=== PATIENT | female | born 1970 | race African-American/Black ===

== ENCOUNTER → 2017-12-02 | Emergency (ER) | payer OTHER ==
[~2017-12-02] VITALS: Ht 154.9 cm; Wt 96.2 kg
[~2017-12-02] MED LIST: LOXAPINE5 MG PO; SEROQUEL 50 MG50 MG PO; XANAX 0.5 MG0.5 MG PO; ZYPREXA2.5 MG PO
[2017-12-02 11:06] VITALS: BP 140/81
[2017-12-02 11:33] LABS: URINE BILIRUBIN NEGATIVE (Negative); URINE BLOOD NEGATIVE (Negative); URINE CLARITY SL CLOUDY; URINE COLOR YELLOW; URINE GLUCOSE-RANDOM* NEGATIVE (Negative); URINE KETONES NEGATIVE (Negative); URINE PROTEIN (DIPSTICK) NEGATIVE (Negative); URINE UROBILINOGEN 0.2 E.U./dl (0.2-1.0)
[2017-12-02 11:34] LABS: URINE LEUKOCYTES-REFLEX TRACE (Negative); URINE NITRITE-REFLEX POSITIVE (Negative)
[2017-12-02 11:41] LABS: AMP/METHAMP Negative (Negative); BARBITURATES Negative (Negative); BENZODIAZEPINES Negative (Negative); COCAINE Negative (Negative); METHADONE Negative (Negative); OPIATES Negative (Negative); PCP POSITIVE (Negative)
[2017-12-02 11:43] LABS: BACTERIA-REFLEX >30 Many /HPF (None Seen); CASTS None Seen /LPF (None Seen); CRYSTALS None Seen /LPF (None Seen); SQUAMOUS >10 Many /LPF (0-3); URINE RBC None Seen /HPF (0-2); URINE WBC-REFLEX 6-15 Few /HPF (0-5)
[2017-12-02 12:21] LABS: ABSOLUTE NEUTROPHILS 5.7 thou/uL (1.4-8.2); BASOPHILS 0.7 % (0.0-2.0); EOSINOPHILS 0.1 % (0.0-3.0); HEMATOCRIT 40.1 % (37.0-47.0); HEMOGLOBIN 13.8 gm/dL (12.0-15.0); LYMPHOCYTES 29.8 % (24.0-44.0); MCH 30.7 pg (26.0-34.0); MCHC 34.5 g/dL (28.0-37.0); MONOCYTES 7.1 % (1.0-8.0); PLATELET COUNT 243 thou/uL (150-400); POLYS 62.3 % (36.0-66.0); RBC 4.51 mil/uL (4.20-5.00); RDW 14.9 % (10.5-14.5); WBC 9.2 thou/uL (4.0-11.0)
[2017-12-02 12:23] LABS: ANION GAP 7 mmol/L (7-16); BUN 9 mg/dL (7-18); CALCIUM 9.3 mg/dL (8.5-10.1); CHLORIDE 103 mmol/L (98-107); CO2 29 mmol/L (21-32); GLUCOSE 78 mg/dL (74-106); POTASSIUM 3.1 mmol/L (3.5-5.1); SODIUM 139 mmol/L (136-145)
[2017-12-02 12:29] LABS: ALBUMIN 3.8 g/dL (3.4-5.0); SALICYLATE 4.2 mg/dL (2.8-20.0); SGOT 22 U/L (15-37); SGPT 32 U/L (30-65); TOTAL BILIRUBIN 0.3 mg/dL (<0.1-1.0); TOTAL PROTEIN 8.1 g/dL (6.4-8.2)
== END ==
LOC: ER 10:58
PROVIDERS: Emergency Medicine
DX: F32.9 Major depressive disorder, single episode, unspecified (principal); F41.9 Anxiety disorder, unspecified; Z59.0 Homelessness; F17.210 Nicotine dependence, cigarettes, uncomplicated; I10 Essential (primary) hypertension

== ENCOUNTER 2020-11-29 01:12 | Emergency (ER) | payer OTHER ==
[~2020-11-29] VITALS: Ht 154.9 cm; Wt 81.7 kg
--- NOTE | ~2020-11-29 | EMS ---
[address] [address] EMS Patient Care Report Name: DOMINICK GAMBOA Room #: DEP CAN Sam#: [id number] Admission: 11/29/20 Attend Phys: Discharge: 11/29/20 Date of : 74 Report #: [id number] THIS REPORT FOR: //name// Report Transmitted: 11/30/2020 14:50 EMS Care Summary [place], [place]/[facility] Incident [id number] @ 11/29/2020 00:21 Incident Location [address] [place] [id number] Patient DOMINICK GAMBOA Female, 50 Years 1970 Patient Address [address] [place] [address] [address] [place] [address] Patient History Chronic Obstructive Pulmonary Disease (COPD),Hypertension (HTN),Bipolar II Disorder,Depression,Anxiety,Colostomy,Schizoaffective Disorder,Insomnia, Patient Allergies No known allergies, Patient Medications Lisinopril, Lorazepam, Trazodone, Seroquel, Albuterol, Chief Complaint SI Disposition Transported No Lights/[place] Dispatch Reason Psychiatric Problem/Abnormal Behavior/Suicide Attempt Transported To [facility] Narrative UPON ARRIVAL WE FOUND OUR 50 YEAR OLD FEMALE PATIENT, WITH AN EXTENSIVE MENTAL [facility] [address] [place] [address] EMS Patient Care Report Name: DOMINICK GAMBOA Room #: DEP CAN Sam#: [id number] Admission: 11/29/20 Attend Phys: Discharge: 11/29/20 Date of : 74 Report #: [id number] HEALTH HX, SITTING ON THE STAIRS IN FRONT OF AN APT BUILDING COMPLAINING OF BEING DEPRESSED AND SI WITH A PLAN TO OVERDOSE ON HER MEDS. THE PATIENT REQUESTS TRANSPORT TO [facility] FOR EVALUATION. Initial Vitals @00:48P: 105,R: 18,BP: 174/100,Pain: 0/10,GCS: 15,CO: 13,SpO2: 97,Revised Trauma: 12, @01:08P: 108,R: 18,BP: 170/100,Pain: 0/10,GCS: 15,SpO2: 98,Revised Trauma: 12, Assessments @00:45MENTAL:Place Oriented,Person Oriented,Time Oriented,Event Oriented,Other,SKIN:HEENT:Eyes: Right Pupil: 4-mm,Eyes: Left Pupil: 4-mm,Head/Face: No Abnormalities,Neck/Airway: No Abnormalities,LUNG SOUNDS:General: No Abnormalities,ABDOMEN:General: No Abnormalities,PELVIS//GI:No Abnormalities,EXTREMITIES:Left Arm: No Abnormalities,Right Arm: No Abnormalities,Left Leg: No Abnormalities,Right Leg: No Abnormalities,PULSE:Radial: 2+ Normal,NEURO:No Abnormalities, Impression Suicidal Ideation Procedures @00:45ALS AssessmentResponse: UnchangedSucceeded Timeline 00:19,Call Received 00:19,Dispatch Notified 00:21,Dispatched 00:25,En Route 00:44,On Scene 00:45,At Patient 00:45,ALS Assessment,Response: UnchangedSucceeded, 00:48,BP: 174/100 M,PULSE: 105,RR: 18 R,SPO2: 97 Ox,ETCO2: ,BG: ,PAIN: 0,GCS: 15, 00:49,Depart Scene 01:07,At Destination 01:08,BP: 170/100 M,PULSE: 108,RR: 18 R,SPO2: 98 Ox,ETCO2: ,BG: ,PAIN: 0,GCS: 15, 01:23,Call Closed Disclaimer v1.1 Copyright 2020 [employer] This EMS Care Summary contains data elements from the applicable legal record (which may be displayed differently). It is designed to provide pertinent information for the following purposes: continuity of care, clinical quality, and state data reporting. The complete legal record is available to ED staff [address] [address] EMS Patient Care Report Name: DOMINICK GAMBOA Room #: DEP CAN Sam#: [id number] Admission: 11/29/20 Attend Phys: Discharge: 11/29/20 Date of : 74 Report #: [id number] and administrators of the receiving hospital in 8aweek's Patient Tracker. All data is provided "as is."
[2020-11-29 02:00] LABS: ABSOLUTE NEUTROPHILS 5.2 thou/uL (1.4-8.2); BASOPHILS 1.3 % (0.0-2.0); EOSINOPHILS 1.1 % (0.0-3.0); HEMATOCRIT 34.4 % (37.0-47.0); HEMOGLOBIN 11.4 gm/dL (12.0-15.0); LYMPHOCYTES 36.2 % (24.0-44.0); MCH 28.8 pg (26.0-34.0); MCHC 33.3 g/dL (28.0-37.0); MCV 86.6 fL (80.0-100.0); MONOCYTES 8.2 % (1.0-8.0); PLATELET COUNT 266 thou/uL (150-400); POLYS 53.2 % (36.0-66.0); RBC 3.97 mil/uL (4.20-5.00); RDW 16.6 % (10.5-14.5); WBC 9.8 thou/uL (4.0-11.0)
[2020-11-29 02:10] LABS: CREATININE 0.8 mg/dL (0.6-1.0); POTASSIUM 3.6 mmol/L (3.5-5.1)
[2020-11-29 02:17] LABS: ALBUMIN 3.7 g/dL (3.4-5.0); SALICYLATE 4.2 mg/dL (2.8-20.0); TOTAL BILIRUBIN 0.3 mg/dL (0.2-1.0); TOTAL PROTEIN 7.6 g/dL (6.4-8.2)
[2020-11-29 03:47] LABS: AMP/METHAMP Negative (Negative); BARBITURATES Negative (Negative); BENZODIAZEPINES Negative (Negative); COCAINE Negative (Negative); METHADONE Negative (Negative); OPIATES Negative (Negative); PCP POSITIVE (Negative)
[2020-11-29 06:27] VITALS: BP 141/97
== END 2020-11-29 06:30 | disposition home or self-care (01) ==
LOC: ER 01:12
PROVIDERS: Emergency Medicine
DX: R45.851 Suicidal ideations (principal); Z20.822 Contact with and (suspected) exposure to COVID-19; F41.9 Anxiety disorder, unspecified; F17.210 Nicotine dependence, cigarettes, uncomplicated; F32.9 Major depressive disorder, single episode, unspecified; Z79.899 Other long term (current) drug therapy